=== PATIENT | female | born 1990 | race Caucasian/White ===

== ENCOUNTER 2019-01-04 06:31 | Emergency (ER) | payer OTHER ==
[~2019-01-04] VITALS: Ht 162.6 cm; Wt 77.1 kg
[~2019-01-04 06:31] MED LIST: FLOMAX0.4 MG PO; NABUMETONE 750750 M1 PO; NORCO 5-325 TA1 EACH PO; ONDANSETRON HCL4 M2 PO
[2019-01-04 06:37] VITALS: BP 124/82
[2019-01-04] MEDS ORDERED: BACTRIM DS TAB1 EACH PO (06:45)
[2019-01-04] MEDS ORDERED: TRAMADOL 50 MG50 MG PO (06:45)
[2019-01-05] MEDS ORDERED: CLEOCIN HCL150 MG PO (20:17)
[2019-01-05] MEDS ORDERED: PREDNISONE50 MG PO (20:17)
[2019-01-05] MEDS ORDERED: NORCO 7.5-3251 EACH PO (21:07)
== END 2019-01-04 06:50 | disposition home or self-care (01) ==
LOC: M.ERS 06:31
DX: S40.861A Insect bite (nonvenomous) of right upper arm, initial encounter (principal); S80.862A Insect bite (nonvenomous), left lower leg, initial encounter; L03.116 Cellulitis of left lower limb; L03.114 Cellulitis of left upper limb; W57.XXXA Bitten or stung by nonvenomous insect and other nonvenomous arthropods, initial encounter; Y93.89 Activity, other specified; Y92.89 Other specified places as the place of occurrence of the external cause; Y99.8 Other external cause status

== ENCOUNTER 2019-01-05 19:03 | Emergency (ER) | payer OTHER ==
[~2019-01-05] VITALS: Ht 157.5 cm; Wt 77.1 kg
[~2019-01-05 19:03] MED LIST changes: +BACTRIM DS TAB1 EACH PO; +TRAMADOL 50 MG50 MG PO
[2019-01-05 20:00] LABS: ABSOLUTE EOSINOPHILS 0.1 thou/uL (0.0-0.7); ABSOLUTE LYMPHOCYTES 2.7 thou/uL (0.8-5.3); ABSOLUTE MONOCYTES 0.4 thou/uL (0.0-1.2); ABSOLUTE NEUTROPHILS 5.9 thou/uL (1.6-8.1); BASOPHILS 0.5 %; EOSINOPHILS 1.5 %; HEMATOCRIT 38.6 % (37.0-47.0); LYMPHOCYTES 29.3 %; MCH 29.5 pg (26.0-34.0); MCHC 33.6 g/dL (28.0-37.0); MCV 87.6 fL (80.0-100.0); MONOCYTES 4.7 %; MPV 8.3 fl. (7.2-11.1); NUCLEATED RBCS 0 /100WBC; PLATELET COUNT* 343 thou/uL (150-400); RDW-CV 12.9 % (10.5-14.5); WBC 9.1 thou/uL (4.0-11.0)
[2019-01-05 20:09] LABS: CALCIUM 9.1 mg/dL (8.5-10.1); CREATININE 0.9 mg/dL (0.6-1.3); POTASSIUM 3.9 mmol/L (3.5-5.1)
[2019-01-05] MEDS ORDERED: PREDNISONE50 MG PO (20:17)
[2019-01-05] MEDS ORDERED: CLEOCIN HCL150 MG PO (20:17)
[2019-01-05] MEDS ORDERED: NORCO 7.5-3251 EACH PO (21:07)
[2019-01-05 21:35] VITALS: BP 120/86
--- NOTE | 2019-01-06 10:48 | EKG ---
[place] [address] ELECTROCARDIOGRAM REPORT Name: CARLA MARTINEZ Room: [facility]#: [id number] Admission: 01/05/19 Attend Phys: Discharge: 01/05/19 Date of : 89 Report #: [id number] THIS REPORT FOR: //name// [facility] ED Test Date: 2019-01-05 Test Time: 19:16:04 Pat Name: CARLA MARTINEZ Department: Room: Gender: F [employer]: [employer]EWART : 1990 Requested By: Joyce Smith Order Number: [id number] Linda MD: Sean Johnson Measurements Intervals Catarina Rate: 85 P: 69 CO: 146 QRS: 87 QRSD: 92 T: 6 QT: 348 QTc: 414 Interpretive Statements Sinus rhythm Borderline T abnormalities, anterior leads Baseline wander in lead(s) II,III,aVF No previous ECG available for comparison Electronically Signed On 01-06-2019 10:48:38 CDT by Sean Johnson [email or web address] <ELECTRONICALLY SIGNED> By: Sean Johnson MD, [facility] 01/06/19 1048 15 15 Sean Johnson MD, FACC /EPI
== END 2019-01-05 21:38 | disposition home or self-care (01) ==
LOC: M.ERS 19:03
PROVIDERS: Emergency Medicine
DX: L03.113 Cellulitis of right upper limb (principal); Z88.6 Allergy status to analgesic agent; Z87.442 Personal history of urinary calculi; Z98.890 Other specified postprocedural states